=== PATIENT | female | born 1975 | race Caucasian/White ===

== ENCOUNTER 2018-11-18 16:57 | Emergency (ER) | payer SELFPAY ==
[~2018-11-18] VITALS: Ht 160 cm; Wt 61.3 kg
--- NOTE | 2018-11-18 17:24 | ED Neurological Problem ---
General Chief Complaint: Neurological Problems Stated Complaint: SEIZURE Nursing Triage Note: Pt to Rm 6 via [facility] with seizure activity. Pt mother at bedside reports seizure lasted approx 3 min, was lowered to ground, denies hitting head. Pt does not have Hx of seizures. Pt reports having TIA a few months ago. Nursing Sepsis Screen: No Definite Risk Source: patient Exam Limitations: no limitations History of Present Illness Date Seen by Provider: Nov 18, 2018 Time Seen by Provider: 16:58 Initial Comments [place] and chief complaint of seizure activity lasting anywhere between 3-5 minutes per mom and EMS. EMS and when they arrived she was postictal. Patient does not have a history of seizure disorder to 6 months ago she had some kind of a syncopal episode and was told it was a TIA but the CT scan and MRI of her head were also told to be normal. She was put on topiramate by neurology in [place]. Her primary care is in [place]. She is on 50 mg daily and she says she takes routinely. She does have a history of alcohol abuse disorder status post remission. She was drinking a fifth of vodka today and routinely present in the ER alcohol level over 400. She says she has not had a drink in 2 weeks that her mom says she was drinking last week. When pressed alone the patient admits she did have a couple drinks last night. Patient says she does have an active genital herpes outbreak but she's not having any neck rigidity, fevers chills. She's had some mild nausea all day. She said she took some Zofran from her mother and the nausea got away and she was about to eat when it came on. She had an aura of not feeling right for about 30 seconds prior to the seizure. 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 The patient has no history of seizure activity. She is not diabetic nor does she have high blood pressure, high cholesterol, diabetes. She does occasionally smoke. No coronary history. No familial history of epilepsy or early onset coronary, vascular or stroke. Allergies and Home Medications Allergies Coded Allergies: No Known Drug Allergies (Unverified , 11/18/18) Home Medications Albuterol Sulfate 2.5 Mg/0.5 Ml Vial.neb, 2.5 MG INH PRN, (Reported) Patient Home Medication List Home Medication List Reviewed: Yes Review of Systems Review of Systems Constitutional: No chills, No fever Eyes: Denies Blindness, Denies Drainage Ears, Nose, Mouth, Throat: denies ear pain, denies ear discharge Respiratory: No cough, No short of breath Cardiovascular: No chest pain, No edema Gastrointestinal: No abdominal pain, No nausea Genitourinary: No discharge, No dysuria : No Musculoskeletal: No back pain, No joint pain Past Ungzzta-Gmqdjf-Vyekwp Hx Patient Social History Alcohol Use: Past History Alcohol Beverage of Choice: Vodka Recreational Drug Use: Yes Drug of Choice: MJ Smoking Status: Current Someday Smoker Type Used: Cigars 2nd Hand Smoke Exposure: No Recent Foreign Travel: No Contact w/Someone Who Travel: No Recent Infectious Disease Expo: No Recent Hopitalizations: No Physical Abuse: No Sexual Abuse: No Mistreated: No Seasonal Allergies Seasonal Allergies: No Past Medical History Surgeries: Yes Appendectomy, Section, Hysterectomy Respiratory: Yes Asthma Cardiac: Yes Hypertension Neurological: Yes (TIA 04/2018) 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 oz. kg; 23.00 BMI Method: General Appearance: WD/WN, no apparent distress HEENT: PERRL/EOMI, normal ENT inspection, TMs normal, pharynx normal Neck: non-tender, full range of motion, normal inspection Respiratory: lungs clear, normal breath sounds, no respiratory distress, no accessory muscle use Cardiovascular: normal peripheral pulses, regular rate, rhythm, no edema Peripheral Pulses: 2+ Dorsalis Pedis (R), 2+ Left Dors-Pedis (L), 2+ Radial Pulses (R), 2+ Radial Pulses (L) Gastrointestinal: normal bowel sounds, non tender, soft, no organomegaly Extremities: normal range of motion, non-tender, normal inspection, no pedal edema, no calf tenderness 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, no motor/sensory deficits, alert, normal mood/affect, oriented x 3 Crainal Nerves: normal hearing, normal speech, PERRL Coordination/Gait: normal finger to nose, normal gait Motor/Sensory: no motor deficit, no sensory deficit Skin: normal color, warm/dry Progress/Results/Core Measures Results/Orders Lab Results Laboratory Tests Test 11/18/18 16:58 11/18/18 17:36 11/18/18 17:38 Range/Units White Blood Count 6.6 4.3-11.0 10^3/uL Red Blood Count 3.68 L 4.35-5.85 10^6/uL Hemoglobin 12.5 11.5-16.0 G/DL Hematocrit 37 35-52 % Mean Corpuscular Volume 99 80-99 FL Mean Corpuscular Hemoglobin 34 25-34 PG Mean Corpuscular Hemoglobin Concent 34 32-36 G/DL Red Cell Distribution Width 13.6 10.0-14.5 % Platelet Count 310 130-400 10^3/uL Mean Platelet Volume 11.6 H 7.4-10.4 FL Neutrophils (%) (Auto) 59 42-75 % Lymphocytes (%) (Auto) 22 12-44 % Monocytes (%) (Auto) 17 H 0-12 % Eosinophils (%) (Auto) 1 0-10 % Basophils (%) (Auto) 1 0-10 % Neutrophils # (Auto) 3.9 1.8-7.8 X 10^3 Lymphocytes # (Auto) 1.4 1.0-4.0 X 10^3 Monocytes # (Auto) 1.1 H 0.0-1.0 X 10^3 Eosinophils # (Auto) 0.0 0.0-0.3 10^3/uL Basophils # (Auto) 0.1 0.0-0.1 10^3/uL Urine Color YELLOW Urine Clarity CLEAR Urine pH 8 5-9 Urine Specific [place] 1.010 L 1.016-1.022 Urine Protein 2+ H NEGATIVE Urine Glucose (UA) NEGATIVE NEGATIVE Urine Ketones NEGATIVE NEGATIVE Urine Nitrite NEGATIVE NEGATIVE Urine Bilirubin NEGATIVE NEGATIVE Urine Urobilinogen NORMAL NORMAL MG/DL Urine Leukocyte Esterase NEGATIVE NEGATIVE Urine RBC (Auto) NEGATIVE NEGATIVE Urine RBC NONE /HPF Urine WBC NONE /HPF Urine Squamous Epithelial Cells 25-50 H /HPF Urine Crystals NONE /LPF Urine Bacteria NEGATIVE /HPF Urine Casts NONE /LPF Urine Mucus NEGATIVE /LPF Urine Culture Indicated NO Urine Opiates Screen NEGATIVE NEGATIVE Urine Oxycodone Screen NEGATIVE NEGATIVE Urine Methadone Screen NEGATIVE NEGATIVE Urine Propoxyphene Screen NEGATIVE NEGATIVE Urine Barbiturates Screen NEGATIVE NEGATIVE Ur Tricyclic Antidepressants Screen NEGATIVE NEGATIVE Urine Phencyclidine Screen NEGATIVE NEGATIVE Urine Amphetamines Screen NEGATIVE NEGATIVE Urine Methamphetamines Screen NEGATIVE NEGATIVE Urine Benzodiazepines Screen POSITIVE H NEGATIVE Urine Cocaine Screen NEGATIVE NEGATIVE Urine Cannabinoids Screen POSITIVE H NEGATIVE Sodium Level 142 135-145 MMOL/L Potassium Level 3.9 3.6-5.0 MMOL/L Chloride Level 101 98-107 MMOL/L Carbon Dioxide Level 25 21-32 MMOL/L Anion Gap 16 H 5-14 MMOL/L Blood Urea Nitrogen 5 L 7-18 MG/DL Creatinine 0.63 0.60-1.30 MG/DL Estimat Glomerular Filtration Rate > 60 BUN/Creatinine Ratio 8 Glucose Level 95 70-105 MG/DL Calcium Level 8.9 8.5-10.1 MG/DL Corrected Calcium 8.8 8.5-10.1 MG/DL Total Bilirubin 0.7 0.1-1.0 MG/DL Aspartate Amino Transf (AST/SGOT) 97 H 5-34 U/L Alanine Aminotransferase (ALT/SGPT) 62 H 0-55 U/L Alkaline Phosphatase 105 40-136 U/L C-Reactive Protein High Sensitivity 0.30 0.00-0.50 MG/DL Total Protein 8.0 6.4-8.2 GM/DL Albumin 4.1 3.2-4.5 GM/DL Serum Alcohol < 10 <10 MG/DL My Orders Orders - BRE ESPINOZA Cbc With Automated Diff (11/18/18 17:17) Comprehensive Metabolic Panel (11/18/18 17:17) Hs C Reactive Protein (11/18/18 17:17) Ua Culture If Indicated (11/18/18 17:17) Urine Bedside (11/18/18 17:17) Drug Screen Stat (Urine) (11/18/18 17:17) Alcohol (11/18/18 17:17) Ekg Tracing (11/18/18 17:17) Continuous Ekg Monitoring (11/18/18 17:17) Vital Signs/I&O 11/18/18 16:58 Temp 36.9 Pulse 82 Resp 17 B/P (MAP) 164/113 (130) Pulse Ox 100 O2 Delivery Room Air Blood Pressure Mean: 130 Progress Progress Note : Time: 18:26 Progress Note Patient appears to have a seizure based on the history given. She did have a postictal state. This may explain the syncopal episode she had before that was diagnosed as either a TIA or seizure episode or related to her migraine headaches history. She is already on topiramate 50 mg and we can increase that to 100 mg and have her follow-up with her neurologist and primary care. Could also be related to her alcohol intake. It is negative although she does have benzos in her system which she did not claim initially. EMS made it clear that they did not give her anything. After discussing these results it does not appear that she has any evidence of acute infectious process with a negative CRP white count, lack of meningismus and aseptic vital signs. Despite her active herpetic lesions, disseminated herpetic infection does not seem to be a likely differential for her presentation today. Initial ECG Impression Date: Nov 18, 2018 Initial ECG Impression Time: 17:04 Initial ECG Rate: 81 Initial ECG Rhythm: Normal Sinus Initial ECG Intervals: Normal Initial ECG Impression: Normal Comment Normal sinus rhythm without acute ST elevation or depression. Departure Impression Primary Impression: Observed seizure-like activity Disposition: 01 HOME, SELF-CARE Condition: Stable Departure-Patient Inst. Decision time for Depature: 18:30 Referrals: UNKNOWN (PCP/Family) Primary Care Physician Patient Instructions: Seizures, Adult (DC) Add. Discharge Instructions: Start taking 100 mg of your topiramate. Follow-up with primary care to set up EEG. Plan to follow up with neurology to discuss the outcome of your workup. You are not to drive until you are cleared by a physician or seizure free for over one year. Avoid alcohol usage as this can contribute to seizure activity. All discharge instructions reviewed with patient and/or family. Voiced understanding. Scripts Topiramate (Topiramate) 100 Mg Tablet 100 MG PO DAILY for 14 Days, #14 TAB 0 Refills Prov: BRE ESPINOZA 11/18/18 BRE ESPINOZA Nov 18, 2018 17:24
[2018-11-18 17:26] LABS: BASOPHILS # (AUTO) 0.1 10^3/uL (0.0-0.1); BASOPHILS % (AUTO) 1 % (0-10); EOSINOPHILS % (AUTO) 1 % (0-10); HEMATOCRIT 37 % (35-52); HEMOGLOBIN 12.5 G/DL (11.5-16.0); LYMPHOCYTES # (AUTO) 1.4 X 10^3 (1.0-4.0); LYMPHOCYTES % (AUTO) 22 % (12-44); MEAN CORPUSCULAR HEMOGLOBIN 34 PG (25-34); MEAN CORPUSCULAR HGB CONC 34 G/DL (32-36); MEAN CORPUSCULAR VOLUME 99 FL (80-99); MEAN PLATELET VOLUME 11.6 FL (7.4-10.4); MONOCYTES # (AUTO) 1.1 X 10^3 (0.0-1.0); MONOCYTES % (AUTO) 17 % (0-12); NEUTROPHILS # (AUTO) 3.9 X 10^3 (1.8-7.8); NEUTROPHILS % (AUTO) 59 % (42-75); PLATELET COUNT 310 10^3/uL (130-400); RED CELL DISTRIBUTION WIDTH 13.6 % (10.0-14.5); WHITE BLOOD COUNT 6.6 10^3/uL (4.3-11.0)
[2018-11-18] MEDS ORDERED: ALB0.5V INH (17:29)
[2018-11-18] MEDS ORDERED: MONT4GRA9 PO (17:29)
[2018-11-18] MEDS ORDERED: TOPI50TA37 PO (17:29)
[2018-11-18] MEDS ORDERED: CYAN250010 PO (17:34)
[2018-11-18] MEDS ORDERED: LABE100T6 PO (17:34)
[2018-11-18] MEDS ORDERED: OMEP20CA13 PO (17:34)
[2018-11-18 17:49] LABS: BILIRUBIN,URINE NEGATIVE (NEGATIVE); CLARITY,URINE CLEAR; COLOR,URINE YELLOW; GLUCOSE, URINE (UA) NEGATIVE (NEGATIVE); KETONES,URINE NEGATIVE (NEGATIVE); LEUKOCYTE ESTERASE ,URINE NEGATIVE (NEGATIVE); NITRITE,URINE NEGATIVE (NEGATIVE); PH,URINE 8 (5-9); PROTEIN,URINE 2+ (NEGATIVE); UROBILINOGEN,URINE NORMAL (NORMAL)
[2018-11-18 17:55] LABS: BACTERIA,URINE NEGATIVE /HPF; SQUAMOUS EPITHELIAL CELL,UR 25-50 /HPF
[2018-11-18 18:03] LABS: AMPHETAMINE SCREEN, URINE NEGATIVE (NEGATIVE); BARBITURATE SCREEN URINE NEGATIVE (NEGATIVE); BENZODIAZEPINES SCREEN URINE POSITIVE (NEGATIVE); CANNABINOID SCREEN, URINE POSITIVE (NEGATIVE); COCAINE SCREEN URINE NEGATIVE (NEGATIVE); METHADONE STAT NEGATIVE (NEGATIVE); METHAMPHETAMINE SCREEN URINE S NEGATIVE (NEGATIVE); OPIATE SCREEN URINE NEGATIVE (NEGATIVE); OXYCODONE STAT NEGATIVE (NEGATIVE); PROPOXYPHENE STAT NEGATIVE (NEGATIVE); TRICYCLIC ANTIDEPRESSANTS SCRE NEGATIVE (NEGATIVE)
[2018-11-18 18:09] LABS: ALANINE AMINOTRANSFERASE 62 U/L (0-55); ALBUMIN 4.1 GM/DL (3.2-4.5); ALKALINE PHOSPHATASE 105 U/L (40-136); BILIRUBIN,TOTAL 0.7 MG/DL (0.1-1.0); BUN/CREATININE RATIO 8; CALCIUM 8.9 MG/DL (8.5-10.1); CARBON DIOXIDE 25 MMOL/L (21-32); CHLORIDE 101 MMOL/L (98-107); CREATININE SERUM 0.63 MG/DL (0.60-1.30); GFR ESTIMATED > 60; GLUCOSE 95 MG/DL (70-105); SODIUM 142 MMOL/L (135-145)
[2018-11-18 18:13] LABS: POTASSIUM 3.9 MMOL/L (3.6-5.0)
[2018-11-18] MEDS ORDERED: TOPI100T11 PO (18:31)
[2018-11-18 19:18] VITALS: BP 154/101
== END 2018-11-18 19:18 | disposition home or self-care (01) ==
LOC: ER 17:00
DX: R29.818 Other symptoms and signs involving the nervous system (principal); J45.909 Unspecified asthma, uncomplicated; I10 Essential (primary) hypertension; F17.290 Nicotine dependence, other tobacco product, uncomplicated; Z90.710 Acquired absence of both cervix and uterus; Z90.49 Acquired absence of other specified parts of digestive tract; Z86.73 Personal history of transient ischemic attack (TIA), and cerebral infarction without residual deficits
CPT/HCPCS: 36415; 80053; 80306; 80320; 81000; 84703; 85025; 86141; 93005

== ENCOUNTER 2020-08-21 13:59 | Emergency (ER) | payer MEDICAID ==
[~2020-08-21] VITALS: Ht 160 cm; Wt 61.3 kg
[~2020-08-21 13:59] MED LIST: ALB0.5V INH; CYAN250010 PO; LABE100T6 PO; MONT4GRA9 PO; OMEP20CA18 PO; TOPI100T11 PO; TOPI50TA37 PO
[2020-08-21] MEDS ORDERED: NS IV 1000 ML 1,000 ML ONE (14:17)
[2020-08-21] MEDS ORDERED: NS IV 1000 ML 1,000 ML IV SCH (14:30)
[2020-08-21 14:40] LABS: BASOPHILS % (AUTO) 1 % (0-10); EOSINOPHILS % (AUTO) 1 % (0-10); HEMATOCRIT 41 % (35-52); HEMOGLOBIN 14.2 G/DL (11.5-16.0); LYMPHOCYTES % (AUTO) 32 % (12-44); MEAN CORPUSCULAR HEMOGLOBIN 31 PG (25-34); MEAN CORPUSCULAR HGB CONC 35 G/DL (32-36); MEAN CORPUSCULAR VOLUME 90 FL (80-99); MONOCYTES % (AUTO) 8 % (0-12); NEUTROPHILS % (AUTO) 58 % (42-75); PLATELET COUNT 475 10^3/uL (130-400); WHITE BLOOD COUNT 14.3 10^3/uL (4.3-11.0)
[2020-08-21 14:41] LABS: BASOPHILS # (AUTO) 0.1 10^3/uL (0.0-0.1); EOSINOPHILS # (AUTO) 0.1 10^3/uL (0.0-0.3); LYMPHOCYTES # (AUTO) 4.5 X 10^3 (1.0-4.0); MONOCYTES # (AUTO) 1.2 X 10^3 (0.0-1.0); NEUTROPHILS # (AUTO) 8.3 X 10^3 (1.8-7.8)
[2020-08-21 14:58] LABS: SODIUM 142 MMOL/L (135-145)
[2020-08-21 14:59] LABS: ALANINE AMINOTRANSFERASE 16 U/L (0-55); ALKALINE PHOSPHATASE 54 U/L (40-136); BILIRUBIN,TOTAL 0.2 MG/DL (0.1-1.0); BUN/CREATININE RATIO 10; CALCIUM 9.5 MG/DL (8.5-10.1); CARBON DIOXIDE 17 MMOL/L (21-32); CHLORIDE 106 MMOL/L (98-107); CREATININE SERUM 0.67 MG/DL (0.60-1.30); GFR ESTIMATED > 60; GLUCOSE 85 MG/DL (70-105); POTASSIUM 3.6 MMOL/L (3.6-5.0); SALICYLATE < 0.3 MG/DL (5.0-20.0); TOTAL PROTEIN 8.1 GM/DL (6.4-8.2)
[2020-08-21 15:00] LABS: ACETAMINOPHEN < 10 UG/ML (10-30)
[2020-08-21 15:18] LABS: BAND NEUTROPHILS 0 %; BASOPHILS % (MANUAL) 0 %; EOSINOPHILS % (MANUAL) 0 %; LYMPHOCYTES % (MANUAL) 38 %; MONOCYTES % (MANUAL) 4 %; NEUTROPHILS % (MANUAL) 58 %
[2020-08-21 15:19] LABS: CLARITY,URINE CLEAR; COLOR,URINE YELLOW
[2020-08-21 15:20] LABS: BACTERIA,URINE TRACE /HPF; BILIRUBIN,URINE NEGATIVE (NEGATIVE); GLUCOSE, URINE (UA) NEGATIVE (NEGATIVE); KETONES,URINE NEGATIVE (NEGATIVE); LEUKOCYTE ESTERASE ,URINE NEGATIVE (NEGATIVE); NITRITE,URINE NEGATIVE (NEGATIVE); PROTEIN,URINE NEGATIVE (NEGATIVE); WBC,URINE 0-2 /HPF
[2020-08-21 15:24] LABS: AMPHETAMINE SCREEN, URINE NEGATIVE (NEGATIVE); BARBITURATE SCREEN URINE NEGATIVE (NEGATIVE); BENZODIAZEPINES SCREEN URINE NEGATIVE (NEGATIVE); CANNABINOID SCREEN, URINE NEGATIVE (NEGATIVE); COCAINE SCREEN URINE NEGATIVE (NEGATIVE); METHADONE STAT NEGATIVE (NEGATIVE); METHAMPHETAMINE SCREEN URINE S NEGATIVE (NEGATIVE); OPIATE SCREEN URINE NEGATIVE (NEGATIVE); OXYCODONE STAT NEGATIVE (NEGATIVE); PROPOXYPHENE STAT NEGATIVE (NEGATIVE); TRICYCLIC ANTIDEPRESSANTS SCRE NEGATIVE (NEGATIVE)
--- NOTE | 2020-08-21 15:27 | ED Psychosocial ---
General Chief Complaint: Substance Abuse Stated Complaint: AMS Nursing Triage Note: Patient brought into ED by mother. Mother states that patient was discharged from a 30-day rehabilitation program yesterday et then showed up at her house intoxicated today. Source: patient Exam Limitations: intoxication (alcohol) History of Present Illness Date Seen by Provider: Aug 21, 2020 Time Seen by Provider: 14:08 Initial Comments 45-year-old female brought to the emergency department by her mother. Her mother reports the patient was just discharged from a 30-day rehab program yesterday. Patient has a longstanding history of alcohol abuse and intoxication. Patient is somnolent and slow to answer questions. She is saying that she has no complaints. She is rambling in her speech. Associated Symptoms: ingestion (alcohol) Allergies and Home Medications Allergies Coded Allergies: No Known Drug Allergies (Unverified , 11/18/18) Home Medications Albuterol Sulfate 2.5 Mg/0.5 Ml Vial.neb, 2.5 MG INH PRN, (Reported) Gabapentin 300 Mg Capsule, 300 MG PO TID Prescribed by: MORAIMA MUSTAFA on 08/21/20 184 Topiramate 100 Mg Tablet, 100 MG PO DAILY Prescribed by: BRE ESPINOZA on 11/18/18 1831 Patient Home Medication List Home Medication List Reviewed: Yes Review of Systems Constitutional: No chills, No fever EENTM: no symptoms reported Respiratory: no symptoms reported Cardiovascular: no symptoms reported Gastrointestinal: no symptoms reported Genitourinary: no symptoms reported Musculoskeletal: no symptoms reported Skin: no symptoms reported Psychiatric/Neurological: See HPI Past Yhueays-Kcdpiw-Prooro Hx Patient Social History Alcohol Use?: Yes Pt feels they are or have been: No Immunizations Up To Date Influenza Vaccine Up-to-Date: No; Not Current First/Initial COVID19 Vaccinat: unknown Seasonal Allergies Seasonal Allergies: No Past Medical History Surgery/Hospitalization HX: Patient confused. 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 oz. kg; 23.00 BMI Method: General Appearance: WD/WN, other (somnolent but awakens to voice) HEENT: PERRL/EOMI, pharynx normal Neck: non-tender, full range of motion, supple, normal inspection Respiratory: chest non-tender, lungs clear, normal breath sounds Cardiovascular: normal peripheral pulses, regular rate, rhythm Gastrointestinal: normal bowel sounds, non tender, soft, no pulsatile mass Extremities: normal range of motion, non-tender, normal capillary refill Neurologic/Psychiatric: alert Appearance/Memory: disheveled Behavior/Eye Contact: compulsive Skin: warm/dry Progress/Results/Core Measures Results/Orders Lab Results Laboratory Tests Test 08/21/20 14:14 08/21/20 15:10 Range/Units White Blood Count 14.3 H 4.3-11.0 10^3/uL Red Blood Count 4.53 4.35-5.85 10^6/uL Hemoglobin 14.2 11.5-16.0 G/DL Hematocrit 41 35-52 % Mean Corpuscular Volume 90 80-99 FL Mean Corpuscular Hemoglobin 31 25-34 PG Mean Corpuscular Hemoglobin Concent 35 32-36 G/DL Red Cell Distribution Width 12.8 10.0-14.5 % Platelet Count 475 H 130-400 10^3/uL Mean Platelet Volume 10.0 7.4-10.4 FL Immature Granulocyte % (Auto) 0 % Neutrophils (%) (Auto) 58 42-75 % Lymphocytes (%) (Auto) 32 12-44 % Monocytes (%) (Auto) 8 0-12 % Eosinophils (%) (Auto) 1 0-10 % Basophils (%) (Auto) 1 0-10 % Neutrophils # (Auto) 8.3 H 1.8-7.8 X 10^3 Lymphocytes # (Auto) 4.5 H 1.0-4.0 X 10^3 Monocytes # (Auto) 1.2 H 0.0-1.0 X 10^3 Eosinophils # (Auto) 0.1 0.0-0.3 10^3/uL Basophils # (Auto) 0.1 0.0-0.1 10^3/uL Immature Granulocyte # (Auto) 0.0 0.0-0.1 10^3/uL Neutrophils % (Manual) 58 % Lymphocytes % (Manual) 38 % Monocytes % (Manual) 4 % Eosinophils % (Manual) 0 % Basophils % (Manual) 0 % Band Neutrophils 0 % Sodium Level 142 135-145 MMOL/L Potassium Level 3.6 3.6-5.0 MMOL/L Chloride Level 106 98-107 MMOL/L Carbon Dioxide Level 17 L 21-32 MMOL/L Anion Gap 19 H 5-14 MMOL/L Blood Urea Nitrogen 7 7-18 MG/DL Creatinine 0.67 0.60-1.30 MG/DL Estimat Glomerular Filtration Rate > 60 BUN/Creatinine Ratio 10 Glucose Level 85 70-105 MG/DL Calcium Level 9.5 8.5-10.1 MG/DL Corrected Calcium 8.5-10.1 MG/DL Total Bilirubin 0.2 0.1-1.0 MG/DL Aspartate Amino Transf (AST/SGOT) 29 5-34 U/L Alanine Aminotransferase (ALT/SGPT) 16 0-55 U/L Alkaline Phosphatase 54 40-136 U/L Total Protein 8.1 6.4-8.2 GM/DL Albumin 5.0 H 3.2-4.5 GM/DL Salicylates Level < 0.3 L 5.0-20.0 MG/DL Acetaminophen Level < 10 L 10-30 UG/ML Serum Alcohol 337 *H <10 MG/DL Urine Color YELLOW Urine Clarity CLEAR Urine pH 7.0 5-9 Urine Specific [place] 1.010 L 1.016-1.022 Urine Protein NEGATIVE NEGATIVE Urine Glucose (UA) NEGATIVE NEGATIVE Urine Ketones NEGATIVE NEGATIVE Urine Nitrite NEGATIVE NEGATIVE Urine Bilirubin NEGATIVE NEGATIVE Urine Urobilinogen 0.2 < = 1.0 MG/DL Urine Leukocyte Esterase NEGATIVE NEGATIVE Urine RBC (Auto) NEGATIVE NEGATIVE Urine RBC NONE /HPF Urine WBC 0-2 /HPF Urine Squamous Epithelial Cells 10-25 H /HPF Urine Crystals NONE /LPF Urine Bacteria TRACE /HPF Urine Casts NONE /LPF Urine Mucus NEGATIVE /LPF Urine Culture Indicated NO Urine Opiates Screen NEGATIVE NEGATIVE Urine Oxycodone Screen NEGATIVE NEGATIVE Urine Methadone Screen NEGATIVE NEGATIVE Urine Propoxyphene Screen NEGATIVE NEGATIVE Urine Barbiturates Screen NEGATIVE NEGATIVE Ur Tricyclic Antidepressants Screen NEGATIVE NEGATIVE Urine Phencyclidine Screen NEGATIVE NEGATIVE Urine Amphetamines Screen NEGATIVE NEGATIVE Urine Methamphetamines Screen NEGATIVE NEGATIVE Urine Benzodiazepines Screen NEGATIVE NEGATIVE Urine Cocaine Screen NEGATIVE NEGATIVE Urine Cannabinoids Screen NEGATIVE NEGATIVE My Orders Orders - MORAIMA MUSTAFA MD Ua Culture If Indicated (08/21/20 14:19) Cbc With Automated Diff (08/21/20 14:19) Comprehensive Metabolic Panel (08/21/20 14:19) Alcohol (08/21/20 14:19) Drug Screen Stat (Urine) (08/21/20 14:19) Acetaminophen (08/21/20 14:19) Salicylate (08/21/20 14:19) Ekg Tracing (08/21/20 14:19) Ed Iv/Invasive Line Start (08/21/20 14:19) Monitor-Rhythm Ecg Trace Only (08/21/20 14:19) Ns Iv 1000 Ml (Sodium Chloride 0.9%) (08/21/20 14:30) Ns Iv 1000 Ml (Sodium Chloride 0.9%) (08/21/20 14:17) Manual Differential (08/21/20 14:14) Ns Iv 1000 Ml (Sodium Chloride 0.9%) (08/21/20 16:31) Vital Signs/I&O 08/21/20 08/21/20 08/21/20 08/21/20 14:42 15:15 16:15 17:15 Temp 36.7 Pulse 95 82 93 82 Resp 24 12 14 B/P (MAP) 117/71 (86) 111/54 (73) 117/53 (74) 145/79 (101) Pulse Ox 98 100 97 97 O2 Delivery Room Air Room Air Room Air Room Air 08/21/20 08/21/20 18:15 19:01 Temp 37.1 Pulse 75 72 Resp 18 B/P (MAP) 110/72 (85) 114/82 Pulse Ox 98 100 O2 Delivery Room Air Room Air Blood Pressure Mean: 86 Progress Progress Note #1: Progress Note Obtain labs with urine to medically screen patient for psychiatric evaluation if needed. Give IV fluids to hydrate patient. Progress Note #2: Progress Note Labs are stable with elevated white blood cell count likely due to stress. The alcohol level is elevated to 0.337. After given IV fluids the patient was sleeping. Progress Note #3: Progress Note After several hours the patient was waking up more easily and more coherent. She was asking to be able to leave. The mother of the patient was contacted and she was coming back up to pick the patient up. Patient states that she usually takes gabapentin to help with her alcohol and she has had seizures in the past. Will refill the gabapentin for a few days to give her a chance to get in with clinic or reestablish with a detox center Initial ECG Impression Date: Aug 21, 2020 Initial ECG Impression Time: 14:32 Initial ECG Rate: 86 Initial ECG Rhythm: Normal Sinus Initial ECG Comparisson: No Previous ECG Available Comment Normal sinus rhythm with a heart rate of [address] elevation. There are some global T wave flattening. PA interval 185 ms. QT interval 379 ms with a QTc interval 454 ms. There is no prior tracing normal for comparison. Departure Impression Primary Impression: Acute alcoholic intoxication Qualified Codes: F10.920 - Alcohol use, unspecified with intoxication, uncomplicated Additional Impression: Alcohol abuse Disposition: 01 HOME, SELF-CARE Condition: Improved Departure-Patient Inst. Decision time for Depature: 18:42 Referrals: NO,LOCAL PHYSICIAN (PCP) Primary Care Physician [facility] Patient Instructions: ALCOHOL AND SUBSTANCE ABUSE, Alcohol Intoxication ED Add. Discharge Instructions: Follow up with Detox program and alcohol rehab program for continued care and help with stopping drinking and staying sober All discharge instructions reviewed with patient and/or family. Voiced understanding. Scripts Gabapentin (Neurontin) 300 Mg Capsule 300 MG PO TID for Seizure Activity for 10 Days, #30 CAP 0 Refills Prov: MORAIMA MUSTAFA MD 08/21/20 MORAIMA MUSTAFA MD Aug 21, 2020 15:27
[2020-08-21] MEDS ORDERED: NS IV 1000 ML 1,000 ML IV STA (16:31)
[2020-08-21] MEDS ORDERED: GABA300C PO (18:42)
[2020-08-21 19:01] VITALS: BP 114/82
== END 2020-08-21 19:04 | disposition home or self-care (01) ==
LOC: EDUNIT# 13:59 → ER FS 14:00
DX: F10.129 Alcohol abuse with intoxication, unspecified (principal); J45.909 Unspecified asthma, uncomplicated; I10 Essential (primary) hypertension; Z86.73 Personal history of transient ischemic attack (TIA), and cerebral infarction without residual deficits
CPT/HCPCS: 36415; 80053; 80306; 81000; 85007; 85027; 93041; 99284; G0480 ×3; 80320; 80329

== ENCOUNTER 2020-10-13 13:23 | Emergency (ER) | payer MEDICAID ==
[~2020-10-13] VITALS: Ht 160 cm; Wt 64.0 kg
[~2020-10-13 13:23] MED LIST changes: +GABA300C PO
[2020-10-13 13:30] VITALS: BP 183/147
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
[2020-10-13] MEDS ORDERED: NS IV 1000 ML 1,000 ML IV SCH (14:00)
[2020-10-13 14:01] LABS: BILIRUBIN,URINE NEGATIVE (NEGATIVE); CLARITY,URINE CLEAR; COLOR,URINE YELLOW; GLUCOSE, URINE (UA) NEGATIVE (NEGATIVE); KETONES,URINE NEGATIVE (NEGATIVE); LEUKOCYTE ESTERASE ,URINE NEGATIVE (NEGATIVE); NITRITE,URINE NEGATIVE (NEGATIVE); PH,URINE 5.5 (5-9); PROTEIN,URINE NEGATIVE (NEGATIVE)
[2020-10-13 14:12] LABS: AMORPHOUS SEDIMENT,UR RARE AMOR URATES /LPF; BACTERIA,URINE NEGATIVE /HPF; RBC,URINE RARE /HPF
[2020-10-13 14:19] LABS: AMPHETAMINE SCREEN, URINE NEGATIVE (NEGATIVE); BENZODIAZEPINES SCREEN URINE NEGATIVE (NEGATIVE); COCAINE SCREEN URINE NEGATIVE (NEGATIVE)
[2020-10-13 14:20] LABS: BARBITURATE SCREEN URINE NEGATIVE (NEGATIVE); CANNABINOID SCREEN, URINE NEGATIVE (NEGATIVE); METHADONE STAT NEGATIVE (NEGATIVE); METHAMPHETAMINE SCREEN URINE S NEGATIVE (NEGATIVE); OPIATE SCREEN URINE NEGATIVE (NEGATIVE); OXYCODONE STAT POSITIVE (NEGATIVE); PROPOXYPHENE STAT NEGATIVE (NEGATIVE); TRICYCLIC ANTIDEPRESSANTS SCRE NEGATIVE (NEGATIVE)
[2020-10-13 14:27] LABS: ALBUMIN 4.3 GM/DL (3.2-4.5); POTASSIUM 3.6 MMOL/L (3.6-5.0)
[2020-10-13 14:28] LABS: CALCIUM 8.7 MG/DL (8.5-10.1)
[2020-10-13 14:29] LABS: TOTAL PROTEIN 7.6 GM/DL (6.4-8.2)
[2020-10-13 14:31] LABS: BILIRUBIN,TOTAL 0.3 MG/DL (0.1-1.0)
[2020-10-13 14:33] LABS: CREATININE SERUM 0.75 MG/DL (0.60-1.30)
[2020-10-13 14:40] LABS: BASOPHILS # (AUTO) 0.1 10^3/uL (0.0-0.1); BASOPHILS % (AUTO) 1 % (0-10); EOSINOPHILS % (AUTO) 0 % (0-10); HEMATOCRIT 38 % (35-52); HEMOGLOBIN 12.9 g/dL (11.5-16.0); LYMPHOCYTES # (AUTO) 3.8 10^3/uL (1.0-4.0); LYMPHOCYTES % (AUTO) 34 % (12-44); MEAN CORPUSCULAR HEMOGLOBIN 32 pg (25-34); MEAN CORPUSCULAR HGB CONC 34 g/dL (32-36); MEAN CORPUSCULAR VOLUME 93 fL (80-99); MEAN PLATELET VOLUME 10.3 fL (9.0-12.2); MONOCYTES % (AUTO) 9 % (0-12); NEUTROPHILS # (AUTO) 6.4 10^3/uL (1.8-7.8); NEUTROPHILS % (AUTO) 56 % (42-75); PLATELET COUNT 372 10^3/uL (130-400); WHITE BLOOD COUNT 11.4 10^3/uL (4.3-11.0)
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
[2020-10-13] MEDS ORDERED: ONDA4TAB11 PO ×2 (15:21→21:19)
[2020-10-13] MEDS ORDERED: THIAMINE INJECTION 100 MG, FOLIC ACID INJECTION 1 MG, VITAMIN MULTI INJECTION 10 ML, MA... IV ONE ×5 (16:30)
[2020-10-13] MEDS ORDERED: ONDANSETRON 4 MG (ZOFRAN) ORAL DISSOLVE TAB SL ONE (21:15)
[2020-10-13] MEDS ORDERED: ONDANSETRON 4 MG (ZOFRAN) ORAL DISSOLVE TAB ONE (21:17)
== END 2020-10-13 21:27 | disposition home or self-care (01) ==
LOC: EDUNIT# 13:23 → ER 13:25
DX: S06.0X0A Concussion without loss of consciousness, initial encounter (principal); S00.83XA Contusion of other part of head, initial encounter; F10.129 Alcohol abuse with intoxication, unspecified; J45.909 Unspecified asthma, uncomplicated; I10 Essential (primary) hypertension; Z86.73 Personal history of transient ischemic attack (TIA), and cerebral infarction without residual deficits; V89.2XXA Person injured in unspecified motor-vehicle accident, traffic, initial encounter
CPT/HCPCS: 70450; 72125; 80053; 80306; 81000; 85025; 86141; 99284; G0480; 36415; 80320